=== PATIENT | female | born 1995 | race African-American/Black ===

== ENCOUNTER 2019-02-03 10:10 | Inpatient (IN) | payer OTHER ==
--- NOTE | 2019-02-03 10:24 | ED ---
Psychiatric Complaint - HPI Summary HPI Summary: Pt is a 23 y/o F presenting to the ED for a psychiatric complaint. Pt had a follow-up with an [facility] psychiatrist who recommended she go to the ED. Pt told the psychiatrist she applied for a leave of absence from [facility] and had SI with an attempt to overdose with Sertraline and Mirtazapine one week ago. Pt attempted overdose with leftover Sertraline, which she is no longer prescribed. Pt was not hospitalized after the attempt. Pt states she knew she would just throw up after ingesting the medications. Pt told her best friend about the attempt. Pt has had intermittent SI for about 3-4 years. Pt denies HI , hallucinations, SALINAS, myalgia, nausea, vomiting, or fever. Pt denies an attempt before this episode. Pt has not previously had a stay. Pt has a PMHx of depression and asthma. Pt takes 450 mg Bupropion and 15 mg Mirtazapine. Pt has been changing medications for depression for the last 2 years. Pt denies any PSHx, tobacco use, or drug use. Pt admits occasional alcohol use, but none today. Pt is originally from [facility]. - History Of Current Complaint Chief Complaint: EDMentalHealth Time Seen by Provider: 02/03/19 10:22 Hx Obtained From: Patient Onset/Duration: Gradual Onset, Lasting Weeks - 3-4 years, Still Present Timing: Weeks - 3-4 years Severity Initially: Moderate Severity Currently: Moderate Aggravating Factor(s): Nothing Alleviating Factor(s): Nothing Associated Signs And Symptoms: Positive: Negative Related History: Positive For: Prior Psychiatric Issues Has Suicidal: Reports: Thoughts, Has Prior Attempt(s) - OD one week ago Ingestion History: Type/Name Of Drug - Sertraline and Mirtazapine - Allergies/Home Medications Allergies/Adverse Reactions: Allergies Allergy/AdvReac Type Severity Reaction Status Date / Time shellfish derived Allergy Intermediate Swelling Verified 02/03/19 10:54 Of Face,Lips,& Throat Home Medications: Home Medications Albuterol HFA INHALER* [Ventolin HFA Inhaler*] 2 puff INH Q4H PRN 02/03/19 [ History Confirmed 02/03/19] BuPROPion XL* [Bupropion XL*] 300 mg PO DAILY 02/03/19 [History Confirmed ] Mirtazapine TAB* [Remeron TAB*] 15 mg PO BEDTIME 02/03/19 [History Confirmed ] buPROPion HCl [Bupropion Xl] 150 mg PO DAILY 02/03/19 [History Confirmed ] PMH/Surg Hx/FS Hx/Imm Hx Previously Healthy: Yes Endocrine/Hematology History: Denies: Hx Diabetes Cardiovascular History: Denies: Hx Hypertension Respiratory History: Reports: Hx Asthma Sensory History: Denies: Hx Legally Blind, Hx Deafness Opthamlomology History: Denies: Hx Legally Blind EENT History: Denies: Hx Deafness - Surgical History Surgical History: None Surgery Procedure, Year, and Place: None Infectious Disease History: No Infectious Disease History: Denies: Traveled Outside the [place] in Last 30 Days - Family History Known Family History: Negative: Hypertension, Diabetes - Social History Occupation: Student Alcohol Use: Occasionally Hx Substance Use: Yes Substance Use Type: Reports: Marijuana Hx Tobacco Use: No Smoking Status (MU): Never Smoked Tobacco Review of Systems Negative: Fever Negative: Vomiting, Nausea Negative: Myalgia Negative: Headache Positive: Other - Positive SI and attempt one week ago; negative HI or hallucinations All Other Systems Reviewed And Are Negative: Yes Physical Exam - Summary Physical Exam Summary: Constitutional: Well-developed, Well-nourished, Alert. (-) Distressed Skin: Warm, Dry HENT: Normocephalic; Atraumatic Eyes: Conjunctiva normal Neck: Musculoskeletal ROM normal neck. (-) JVD, (-) Stridor, (-) Tracheal deviation Cardio: Rhythm regular, rate normal, Heart sounds normal; Intact distal pulses; Radial pulses are 2+ and symmetric. (-) Murmur Pulmonary/Chest wall: Effort normal. (-) Respiratory distress, (-) Wheezes, (-) Rales Abd: Soft, (-) tenderness, (-) Distension, (-) Guarding, (-) Rebound Musculoskeletal: (-) Edema Lymph: (-) Cervical adenopathy Neuro: Alert, Oriented x3 Psych: Depressed Affect Triage Information Reviewed: Yes Vital Signs On Initial Exam: Initial Vitals Temp Pulse Resp BP Pulse Ox 98.3 F 90 16 132/78 100 02/03/19 10:11 02/03/19 10:11 02/03/19 10:11 02/03/19 10:11 02/03/19 10:11 Vital Signs Reviewed: Yes Procedures - Sedation Patient Received Moderate/Deep Sedation with Procedure: No Diagnostics - Vital Signs Vital Signs Temp Pulse Resp BP Pulse Ox 02/03/19 10:11 98.3 F 90 16 132/78 100 - Laboratory Result Diagrams: 02/03/19 10:42 02/03/19 10:42 Lab Statement: Any lab studies that have been ordered have been reviewed, and results considered in the medical decision making process. Re-Evaluation - Re-Evaluation 1st re-eval Re-Evaluation Time: 10:53 Change: Unchanged Comment: At 10:53, pt is medically cleared for a evaluation. Course/Dx - Course Course Of Treatment: Patient was sent for psychiatric evaluation as she's had suicidal thoughts with a suicide attempt last week. Patient had no symptoms here and was medically cleared by myself. Patient was evaluated by psychiatry in the recommended inpatient admission which she did voluntarilly - Differential Dx/Clinical Impression Provider Diagnosis: Depressive episode Discharge ED - Sign-Out/Discharge Documenting (check all that apply): Patient Departure - Admit - Discharge Plan Condition: Stable [place] [place]illing Disposition and Condition Condition: STABLE Disposition[place] [facility] [place] Attestation Statements Document Initiated by Scribe: Yes Documenting Scribe: Renae Saldaña Provider For Whom Fredy is Documenting (Include Credential): Roger Kauffman MD Scribe Attestation: Renae Blackwood, scribed for Roger Kauffman MD on 02/03/19 at 2026. Scribe Documentation Reviewed: Yes Provider Attestation: The documentation as recorded by the Renae lynne accurately reflects the service I personally performed and the decisions made by ga, Roger Kauffman MD Status of Scribe Document: Viewed Consult Consult: At 13:32, scrap kettle tender reports that pts case was reviewed by Dr. Haynes who will admit the pt with a diagnosis of depressive episode and NOS.
[2019-02-03 11:00] LABS: Urine Appearance Clear; Urine Bilirubin Negative (Negative); Urine Blood Negative (Negative); Urine Color Yellow; Urine Glucose Negative (Negative); Urine Ketones Negative (Negative); Urine Nitrite Negative (Negative); Urine Protein Negative (Negative); Urine Specific Gravity 1.009 (1.010-1.030); Urine Urobilinogen Negative (Negative)
[2019-02-03 11:01] LABS: ABS Basophils 0.1 10^3/ul (0-0.2); ABS Eosinophils 0.2 10^3/ul (0-0.6); ABS Lymphocytes 1.8 10^3/ul (1.0-4.8); ABS Monocytes 0.4 10^3/ul (0-0.8); Eosinophil % 3.6 %; Hematocrit 33 % (35-47); Hemoglobin 10.3 g/dL (12.0-16.0); Lymphocyte % 41.2 %; Mean Corpuscular HGB Conc 32 g/dL (31-36); Mean Corpuscular Hemoglobin 23 pg (27-31); Mean Corpuscular Volume 73 fL (80-97); Mean Platelet Volume 6.4 fL (7.4-10.4); Nucleated Red Blood Cells % 0.2; Platelet Count 631 10^3/uL (150-450); Red Blood Count 4.53 10^6 /uL (3.70-4.87); Red Cell Distribution Width 18 % (10-15); White Blood Count 4.5 10^3/uL (3.5-10.8)
[2019-02-03 11:08] LABS: Urine Benzodiazepine Screen None Detected (None Detect); Urine Opiates Screen None Detected (None Detect)
[2019-02-03 11:09] LABS: ALT 10 U/L (7-52); AST 20 U/L (13-39); Albumin 4.6 g/dL (3.2-5.2); Albumin/Globulin Ratio 1.1 (1-3); Alkaline Phosphatase 69 U/L (34-104); Anion Gap 6 mmol/L (2-11); BUN/Creatinine Ratio 9.8 (8-20); Blood Urea Nitrogen 8 mg/dL (6-24); CO2 Carbon Dioxide 27 mmol/L (22-32); Calcium 9.7 mg/dL (8.6-10.3); Chloride 101 mmol/L (101-111); EGFR African American 105.5 (>60); EGFR Non-African American 87.2 (>60); Globulin 4.1 g/dL (2-4); Glucose 91 mg/dL (70-100); Sodium 134 mmol/L (135-145); Total Protein 8.7 g/dL (6.4-8.9)
[2019-02-03 11:16] LABS: HCG Pregnancy < 0.60 mIU/mL
[2019-02-03 11:55] LABS: Alcohol < 10 mg/dL (<10)
[2019-02-03] MEDS ORDERED: Al Hydrox/Mg Hydrox/Simet LIQ* 30 ML UDC PO PRN (13:04)
[2019-02-03] MEDS ORDERED: Albuterol HFA INHALER* 8 gm MDI INH PRN ×2 (13:05→16:55)
[2019-02-03] MEDS ORDERED: hydrOXYzine HCL TAB* 50 MG PO PRN (13:06)
[2019-02-03] MEDS: Mirtazapine TAB* 15 MG PO SCH (21:51)
[2019-02-04] MEDS ORDERED: BuPROPion XL* 300 MG TAB.XL PO SCH (09:00)
[2019-02-04] MEDS ORDERED: BuPROPion XL* 150 MG TAB.XL PO SCH (09:00)
[2019-02-04] MEDS ORDERED: Influenza VAC *QUAD* 2019-20* 0.5 ML SYRINGE IM ONE (09:00)
[2019-02-04] MEDS: BuPROPion XL* 150 MG TAB.XL PO SCH (10:05)
[2019-02-04] MEDS: BuPROPion XL* 300 MG TAB.XL PO SCH (10:05)
--- NOTE | 2019-02-04 15:27 | HP ---
HISTORY AND PHYSICAL: DATE OF ADMISSION: 02/03/19 PROVIDER: Beverly Uribe NP, in Psychiatry. SUPERVISING PHYSICIAN: Jarrett Haynes MD.* (DICTATED BY BEVERLY URIBE NP) JUSTIFICATION FOR ADMISSION: The patient is in need of 24-hour supervision and care secondary to suicidal ideation and recent overdose. CHIEF COMPLAINT: "I am mentally and emotionally exhausted. For the last three years, I have been toughing it out and trying to find solutions. I am tired of it." HISTORY OF PRESENT ILLNESS: The patient is a 23-year-old single [facility] female with a history of depressive disorder and anxiety, who arrives brought in by [facility] security on a 9.41 following an overdose last week and continuing suicidal ideation with multiple plans. Suzie reports that since freshman and sophomore year, problems have been going on. She is now a senior. She states her fresh year problem started when she had an armpit rash and she could not wash for a week. She then became worried about body odor. This caused her to have increased anxiety. She stopped going to the dinning chung and she was already not eating well and eventually she could not eat without having a panic attack. Her anxiety is greatest around people. She stated that sometimes when she is on meds that are working for her such as a high dose of sertraline, she does not worry that much, but she could not tolerate the high dose of sertraline and so that was stopped. She states she has gone to the [facility] regarding her odor concern and at one point they said she had possibly body bacteria that was imbalanced, but she stopped treating that and has remained anxious about that issue since that time. She had an overdose last week on her leftover pills and Motrin. She states she had a bad day. She has been feeling tired more often. She stated in a surprised way that sometimes I get down but can still be positive, but at this time I am very exhausted. She states she knew the overdose would not work, but she wanted to be numb and the numbness that she was hoping to achieve was from being exhausted mentally and emotionally. She has stressors that include medications that are not working as well that she would like, many of which she cannot tolerate. She is double majoring. She cannot always stay in class due to anxiety. She has this concern about her smell and cannot seem to get past despite the fact that has been 3 or 4 years. PAST PSYCHIATRIC HISTORY: She has had no prior psychiatric hospitalizations, [facility] is the only psychiatric treatment she has ever gotten. She states she has suicidal thoughts "a lot." She has developed a resentment toward her own body. She used to wish she could exist without having her body present. Now, she would prefer to just sleep forever. She is tired of having responsibilities that are overwhelming. She is hoping to never need to have such personal expectations again. PREVIOUS PSYCHIATRIC MEDICATIONS: Included: 1. Prozac. 2. Klonopin. 3. Sertraline. 4. Wellbutrin. 5. Escitalopram. 6. Quetiapine. 7. Aripiprazole. Currently, she is taking low dose mirtazapine and 450 mg of Wellbutrin which she states is not working. She states she has waited for five weeks for it to work and has not helped. That is not necessarily the information that I am getting from Dr. Ndiaye at [facility], who states her mood has improved now and again over the course of the six weeks of notes that I have received from [facility]. PAST MEDICAL HISTORY: She does have a problem absorbing iron and she is exhausted much of the time. She also has been seen for the odor concern that she has. FAMILY HISTORY: She states she has half siblings. Her older brother passed in 2014. He was type 1 diabetic. He had schizophrenia. Her mother indicates that it is from her dad's side and they do not share the same father. Mom is currently exhausted and stressed out from handling that brother. Mom wonders why God gave her two kids with mental illness. Mom also is depended upon heavily by Ashae. SUBSTANCE ABUSE HISTORY: She does not smoke. She is an occasional alcohol drinker. SOCIAL HISTORY: She is from [place]. She lives with her mother there. Here at [place], she goes to school at [employer]. Lives off campus with two roommates that she likes. 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 She has not been in the . She has no legal problems. She is concerned about finances. REVIEW OF SYSTEMS: The patient reports being fatigued. She denies shortness of breath, heat or cold intolerance, chest pain or abdominal pain. She denies neurological symptoms. She denies fevers or changes in weight. PHYSICAL EXAMINATION CONSTITUTIONAL: Well developed, well nourished, alert. VITAL SIGNS: On 02/04/19 at 0800, temperature is 98.9, pulse 103, respirations 16, O2 sat on room air 100, blood pressure 124/67. HEENT: Normocephalic, atraumatic. Eyes, conjunctivae normal. NECK: Musculoskeletal ROM normal neck. No JVD, no stridor, no tracheal deviation. PULMONARY: Chest wall effort normal. No respiratory distress. No wheezes. No rales. CARDIOVASCULAR: Regular rhythm. Rate normal. Heart sounds normal. Intact distal pulses. Radial pulses are 2+ and symmetric. No murmur. ABDOMEN: Soft. No tenderness. No distention. No guarding, no rebound. MUSCULOSKELETAL: No edema. LYMPH: Negative cervical adenopathy. NEURO: Alert and oriented x4. SKIN: Warm and dry. DIAGNOSTIC STUDIES/LAB DATA: Hematology results are significant for low hemoglobin, low hematocrit, low MCV, low MCH, low MPV, high RDW, and high platelet count. Chemistry is largely normal with the exception of sodium being low at 134, globulin high at 4.1. Urine screen shows urine specific gravity low at 1.009. Toxicology screen is free from drugs of abuse. MENTAL STATUS EXAMINATION: Suzie is a 5 feet 3 inches, 96-pound, black woman with her hair pulled back in a bun and wearing a blue fleece jacket. She sits quietly but appears anxious. She is cooperative. Her speech is soft, normal rate and tone. She is dysthymic. She has a full range of affect. Her thought processes are normal. Thought content is free from delusions, although there is a case to be made that the concern she has about body odor is obsessive and may be marginally delusional. She is not homicidal. She is suicidal, but not actively on this this unit. She denies hallucinations. Her insight is fair. Her judgment is good. She is alert and oriented x4. DIAGNOSIS: Major depressive disorder, anxiety disorder. IMPRESSION: Suzie is a 23-year-old single [facility] black female who comes to the hospital following an overdose few days ago and at the urging of Dr. Ndiaye at [facility] who perceives her mental health to be unstable and worrisome. PLAN: The patient is admitted to the adult behavioral health unit and placed on q.15 minute checks for her own safety. She is encouraged to participate in supportive milieu, individual and group therapies. Estimated length of stay is 5 to 7 days. We will obtain an MMPI for diagnostic clarification. We will titrate medications including adding Abilify 5 mg and watching for efficacy. We will monitor for mood and thought content. Discharge planning will include family involvement and outpatient providers. BEVERLY URIBE, DEANGELO [id number]/CPS #: [id number] JOAO
[2019-02-04] MEDS: Mirtazapine TAB* 15 MG PO SCH (21:07)
[2019-02-04] MEDS: ARIPiprazole TAB* 5 MG PO SCH (21:07)
[2019-02-05] MEDS: Ferrous Gluconate TAB* 324 MG TAB PO SCH (09:55)
[2019-02-05] MEDS: BuPROPion XL* 300 MG TAB.XL PO SCH (09:55)
[2019-02-05] MEDS: BuPROPion XL* 150 MG TAB.XL PO SCH (09:55)
[2019-02-05] MEDS: ARIPiprazole TAB* 5 MG PO SCH (22:36)
[2019-02-05] MEDS: Mirtazapine TAB* 15 MG PO SCH (22:37)
[2019-02-06] MEDS: BuPROPion XL* 150 MG TAB.XL PO SCH (10:01)
[2019-02-06] MEDS: BuPROPion XL* 300 MG TAB.XL PO SCH (10:02)
[2019-02-06] MEDS: Ferrous Gluconate TAB* 324 MG TAB PO SCH (10:02)
--- NOTE | 2019-02-06 13:22 | PN ---
Subjective - Subjective Date of Service: 02/06/19 Service Type: 02315 Hosp care 25 min moderate complexity Subjective: Greg continues to believe that she has the bad body odor but less intense than before admission. Mood appears improved, she is more talketive and future oriented about creative writing and so on. Denies SI or hallucinations. Stays mostly to self. Objective - General Observations Appearance: Unkempt Stature: Thin Posture: WNL Eye Contact: Avoidant Behavior/Activity: Slowed - Interaction Observations Attitude Towards Examiner: Cooperative Stated Mood: Dysphoric Affect: Restricted Speech Pattern/Tone: Clear, Quiet Volume Thought Process: Coherent, Goal Directed Thought Content: Depressive Hallucination Type: Denies Delusion Type: Somatic - Cognitive Function Orientation: A&O x 4 Level of Consciousness: Awake, Alert, Appropriate Estimated Intelligence: Normal Judgment Within Normal Limits: No Ability to Make Reasonable Decisions: Moderately Impaired - Medication Compliance Cooperative with Inpatient Medication Regimen: Yes - Group Participation Participates in Group Activities: No Assessment - Assessment Merits Inpatient Hospitalization: For Immediate Safety, For Stabilization, For Discharge Planning Plan - Plan Treatment Plan: Name: GREG DIOP Birthdate: 1995 [id number] Continued Medication Management: Continue Outpt Medication Medications: Current Medications Acetaminophen (Tylenol Tab*) 650 mg PO Q4H PRN PRN Reason: for pain; or Temp >101 F Al Hydrox/Mg Hydrox/Simethicone (Maalox Plus*) 30 ml PO Q4H PRN PRN Reason: INDIGESTION Albuterol (Ventolin Hfa Inhaler*) 2 puff INH Q4H PRN PRN Reason: SOB/WHEEZING Aripiprazole (Abilify Tab*) 5 mg PO BEDTIME [facility] Last Admin: 02/05/19 22:36 Dose: 5 mg Bupropion HCl (Bupropion Xl*) 300 mg PO DAILY [facility] Last Admin: 02/06/19 10:02 Dose: 300 mg Bupropion HCl (Wellbutrin Xl *) 150 mg PO DAILY [facility] Last Admin: 02/06/19 10:01 Dose: 150 mg Ferrous Gluconate (Fergon Tab*) 324 mg PO DAILY [facility] Last Admin: 02/06/19 10:02 Dose: 324 mg Hydroxyzine HCl (Atarax Tab*) 50 mg PO Q6H PRN PRN Reason: anxiety Mirtazapine (Remeron Tab*) 15 mg PO BEDTIME [facility] Last Admin: 02/05/19 22:37 Dose: 15 mg - Discharge Plan Discharge Plan: Outpatient Follow Up Outpatient Program: Counseling/Psych Services at [place]
[2019-02-06] MEDS: Mirtazapine TAB* 15 MG PO SCH (22:01)
[2019-02-06] MEDS: ARIPiprazole TAB* 5 MG PO SCH (22:02)
[2019-02-07] MEDS: Acetaminophen TAB* 325 MG PO PRN ×2 (10:35→19:11)
[2019-02-07] MEDS: BuPROPion XL* 150 MG TAB.XL PO SCH (10:36)
[2019-02-07] MEDS: Ferrous Gluconate TAB* 324 MG TAB PO SCH (10:36)
[2019-02-07] MEDS: BuPROPion XL* 300 MG TAB.XL PO SCH (10:36)
[2019-02-07] MEDS ORDERED: Escitalopram * 10 MG TAB PO SCH (14:00)
[2019-02-07] MEDS: ARIPiprazole TAB* 5 MG PO SCH (15:28)
[2019-02-07] MEDS: GuaiFENesin DM 100 mg/10 mg in 5 ML UDC PO SCH ×2 (15:29→20:32)
--- NOTE | 2019-02-07 16:51 | PN ---
Subjective - Subjective Date of Service: 02/07/19 Service Type: 28617 Hosp care 25 min moderate complexity Subjective: Greg has multiple concerns including not sleeping well, having bad/vivid dreams , not thinking Wellbutrin is helpful, feeling like sertralline was most helpful , but that it upset her stomach, she also has a cough. She also states, "I feel like my depression/anxiety is situational." We discuss this and challenge it, as the situation has been going on for about three years. We talk about how she's always tired and is tired of verything even when there is always stuff to do. She feels exhausted. She also states she works two jobs to pay rent. We discuss the cycle she has of anxiety leading to self-conscious thoughts and then back to anxiety and how she would benefit from both medication and therapy and possibly group therapy. She doesn't want to go to group therapy, however, as it seems to al panic attacks for her. Objective - General Observations Appearance: Neat, Well Groomed Appears Stated Age: Yes Stature: Thin Posture: WNL Eye Contact: Intermittent Behavior/Activity: WNL - Interaction Observations Attitude Towards Examiner: Cooperative, Anxious Stated Mood: Dysphoric, Anxious Affect: Restricted Speech Pattern/Tone: Clear Thought Process: Coherent Perception: Derealization Thought Content: Preoccupation/Ruminations, Obsessional, Depressive, Self- Deprecatory Thought Process: Lethality: Passive Wish, Paranoid Ideation Hallucination Type: None Delusion Type: Somatic - Cognitive Function Orientation: A&O x 4 Level of Consciousness: Awake, Alert, Appropriate Cognition: WNL Estimated Intelligence: Normal Insight: Difficulty Acknowledging Presence of Psyciatric Problems Judgment Within Normal Limits: No Ability to Make Reasonable Decisions: Moderately Impaired - Medication Compliance Cooperative with Inpatient Medication Regimen: Yes - Group Participation Participates in Group Activities: Partial Assessment - Assessment Merits Inpatient Hospitalization: For Immediate Safety Plan - Plan Treatment Plan: Name: GREG DIOP Birthdate: 1995 [id number] 02/07/19 To address concerns, we will change Abilify to the morning. We will stop Wellbutrin, but begin by decreasing it to 300 mg for now. In light of her perceived improvement with sertraline but the side effect of nausea, we will start Lexapro, which is generally more well tolerated. We'll also start a cough medicine for her. Continued Medication Management: Different Medication Medications: Current Medications Acetaminophen (Tylenol Tab*) 650 mg PO Q4H PRN PRN Reason: for pain; or Temp >101 F Last Admin: 02/07/19 10:35 Dose: 650 mg Al Hydrox/Mg Hydrox/Simethicone (Maalox Plus*) 30 ml PO Q4H PRN PRN Reason: INDIGESTION Albuterol (Ventolin Hfa Inhaler*) 2 puff INH Q4H PRN PRN Reason: SOB/WHEEZING Aripiprazole (Abilify Tab*) 5 mg PO QAM [facility] Last Admin: 02/07/19 15:28 Dose: 5 mg Bupropion HCl (Bupropion Xl*) 300 mg PO DAILY [facility] Last Admin: 02/07/19 10:36 Dose: 300 mg Escitalopram Oxalate (Lexapro *) 5 mg PO DAILY [facility] Ferrous Gluconate (Fergon Tab*) 324 mg PO DAILY [facility] Last Admin: 02/07/19 10:36 Dose: 324 mg Guaifenesin/Dextromethorphan (Robitussin Dm*) 10 ml PO TID [facility] Last Admin: 02/07/19 15:29 Dose: 10 ml Hydroxyzine HCl (Atarax Tab*) 50 mg PO Q6H PRN PRN Reason: anxiety Mirtazapine (Remeron Tab*) 15 mg PO BEDTIME [facility] Last Admin: 02/06/19 22:01 Dose: 15 mg - Discharge Plan Discharge Plan: Outpatient Follow Up
[2019-02-07] MEDS: Mirtazapine TAB* 15 MG PO SCH (20:32)
[2019-02-08] MEDS: ARIPiprazole TAB* 5 MG PO SCH (10:06)
[2019-02-08] MEDS: Escitalopram * 5 MG TAB PO SCH (10:07)
[2019-02-08] MEDS: Ferrous Gluconate TAB* 324 MG TAB PO SCH (10:07)
[2019-02-08] MEDS: BuPROPion XL* 300 MG TAB.XL PO SCH (10:07)
[2019-02-08] MEDS: GuaiFENesin DM 100 mg/10 mg in 5 ML UDC PO SCH ×3 (10:08→21:23)
--- NOTE | 2019-02-08 13:10 | PN ---
Subjective - Subjective Date of Service: 02/08/19 Service Type: 40722 Hosp care 15 min low complexity Subjective: Greg talks about her concern about body odor and we discuss that the most likely concern is that her thought processes have contributed the most. She is receptive to the long discussion we have to determine how she can escape the continuous thoughts that she smells bad. She also discussed some specific concerns she had about body odor that were basic to how human bodies smell, such as armpit and vaginal odors. She has been seen outpatient related to these concerns and she is encouraged to follow up with appropriate medical secretary (such as her PCP and a woman's health professional) and she is discouraged from following up on things that have a lower likelihood of causing problems, such as a chronic sinus problem or washing clothes 2-4 times per day. She says that she appreciates the conversation and that it means a lot to her. She then goes to wash her clothes for the second time today. Objective - General Observations Appearance: Neat, Well Groomed Appears Stated Age: Yes Stature: Thin Posture: WNL Eye Contact: Average Behavior/Activity: WNL - Interaction Observations Attitude Towards Examiner: Cooperative, Anxious Stated Mood: Dysphoric Affect: Restricted Speech Pattern/Tone: Clear, Quiet Volume Thought Process: Coherent, Goal Directed Perception: Illusions Thought Content: Preoccupation/Ruminations, Paranoid, Self-Deprecatory, Phobic Hallucination Type: Olfactory Delusion Type: Somatic - Cognitive Function Orientation: A&O x 4 Level of Consciousness: Awake, Alert, Appropriate Cognition: WNL Estimated Intelligence: Normal Insight: Difficulty Acknowledging Presence of Psyciatric Problems Judgment Within Normal Limits: No Ability to Make Reasonable Decisions: Mildly Impaired - Medication Compliance Cooperative with Inpatient Medication Regimen: Yes - Group Participation Participates in Group Activities: Partial Assessment - Assessment Merits Inpatient Hospitalization: For Immediate Safety, For Discharge Planning Inpatient DSM-V Dx: F42.9 Clinical Impression: Chato is a 23 year old [place] woman who comes to the hospital with suicidal ideation related to her believe that she is malodorous and not succeeding. Plan - Plan Treatment Plan: Name: GREG DIOP Birthdate: 1995 [id number] 02/07/19 To address concerns, we will change Abilify to the morning. We will stop Wellbutrin, but begin by decreasing it to 300 mg for now. In light of her perceived improvement with sertraline but the side effect of nausea, we will start Lexapro, which is generally more well tolerated. We'll also start a cough medicine for her. 02/08/19 Continue Abilify. Increase Lexapro to 10 mg. Decrease Wellbutrin to 150 mg. Continued Medication Management: Different Medication Medications: Current Medications Acetaminophen (Tylenol Tab*) 650 mg PO Q4H PRN PRN Reason: for pain; or Temp >101 F Last Admin: 02/07/19 19:11 Dose: 650 mg Al Hydrox/Mg Hydrox/Simethicone (Maalox Plus*) 30 ml PO Q4H PRN PRN Reason: INDIGESTION Albuterol (Ventolin Hfa Inhaler*) 2 puff INH Q4H PRN PRN Reason: SOB/WHEEZING Aripiprazole (Abilify Tab*) 5 mg PO QAM [facility] Last Admin: 02/08/19 10:06 Dose: 5 mg Bupropion HCl (Bupropion Xl*) 300 mg PO DAILY [facility] Last Admin: 02/08/19 10:07 Dose: 300 mg Escitalopram Oxalate (Lexapro *) 5 mg PO DAILY [facility] Last Admin: 02/08/19 10:07 Dose: 5 mg Ferrous Gluconate (Fergon Tab*) 324 mg PO DAILY [facility] Last Admin: 02/08/19 10:07 Dose: 324 mg Guaifenesin/Dextromethorphan (Robitussin Dm*) 10 ml PO TID [facility] Last Admin: 02/08/19 10:08 Dose: 10 ml Hydroxyzine HCl (Atarax Tab*) 50 mg PO Q6H PRN PRN Reason: anxiety Mirtazapine (Remeron Tab*) 15 mg PO BEDTIME [facility] Last Admin: 02/07/19 20:32 Dose: 15 mg
[2019-02-08] MEDS: Mirtazapine TAB* 15 MG PO SCH (21:22)
[2019-02-09 09:00] VITALS: BP 129/73
[2019-02-09] MEDS: ARIPiprazole TAB* 5 MG PO SCH (09:13)
[2019-02-09] MEDS: Escitalopram * 5 MG TAB PO SCH (09:13)
[2019-02-09] MEDS: BuPROPion XL* 300 MG TAB.XL PO SCH (09:14)
[2019-02-09] MEDS: Ferrous Gluconate TAB* 324 MG TAB PO SCH (09:14)
[2019-02-09] MEDS: GuaiFENesin DM 100 mg/10 mg in 5 ML UDC PO SCH (09:15)
[2019-02-10] MEDS ORDERED: Escitalopram * 5 MG TAB PO SCH (09:00)
[2019-02-10] MEDS ORDERED: BuPROPion XL* 300 MG TAB.XL PO SCH (09:00)
--- NOTE | 2019-02-15 14:16 | DS ---
DISCHARGE SUMMARY: DATE OF ADMISSION: 02/03/19 DATE OF DISCHARGE: 02/09/19 PROVIDER: Beverly Uribe NP in Psychiatry. SUPERVISING PHYSICIAN: Jarrett Haynes MD.* (DICTATED BY BEVERLY URIBE NP ) DIAGNOSES: 1. Major depressive disorder. 2. Generalized anxiety disorder. CONDITION AT THE TIME OF DISCHARGE: Improved, psychiatrically cleared, stable. Suzie participated in groups and was social with peers. She is agreeable to discharge. She did well here psychiatrically. She tolerated the addition of medications, and she will be attending [employer]. MENTAL STATUS EXAM AT THE TIME OF DISCHARGE: Suzie is calm, cooperative, and makes good eye contact. She is alert and oriented x4. Her grooming is good. Her speech pace is normal. Her voice is soft. Her thought processes are logical. She is not psychotic or delusional. She denies AH, VH, SI, and HI. Insight and judgment are good. She is willing to follow up and urged to see a therapist. DISCHARGE INSTRUCTIONS TO THE PATIENT: A. Medications: 1. Albuterol inhaler 2 puffs q.4 hours p.r.n. shortness of breath and wheezing. 2. Aripiprazole 5 mg in the morning. 3. Bupropion 150 daily, to be titrated down to 0 mg. 4. Escitalopram 10 mg daily. 5. Ferrous gluconate 325 mg daily. 6. Mirtazapine 15 mg at bedtime. B. Diet is regular. C. Activities as tolerated. Suzie is a nonsmoker. There are no studies pending at the time of discharge. D. Followup care: She has appointments at [facility] on 02/09/19 at 3 with Gifty Chávez; on 02/17/19 at 10:[address] Ndiaye; and on at 10 a.m. with Jennifer Freeman. E. Disposition: She is being discharged to her apartment off campus. F. Substance abuse followup is not indicated. HOSPITAL COURSE: Part A: Chief Complaint: "I am mentally and emotionally exhausted for the last 3 years. I have been toughing it out and trying to find solutions, I am tired of it." The patient is a 23-year-old single [facility] female with a history of depressive disorder and anxiety, who arrives brought in by [facility] on a 941 following an overdose last week and continuing suicidal ideation with multiple plans. Suzie reports that since freshman and sophomore year, problems have been going on. She is now a jones or senior. She states her fresh year problems started when she had an armpit rash and she could not wash for a week. She then became worried about body odor. This caused her to have increased anxiety and she stopped going to the dining chung and she was already not eating well and eventually she could not eat without having a panic attack. Her anxiety is greatest around people. She stated that sometimes when she is on meds that are working for her such as the high dose of sertraline, she does not worry that much, but she could not tolerate the high dose of sertraline and she was not fully compliant with medication, so that was stopped. She states she has gone to [facility] regarding her odor concern and at one point they said she had possibly body bacteria that was imbalanced, but she stopped treating that and has remained anxious about that issue since that time. She had an overdose last week on her leftover pills and Motrin. She states she had a bad day. She has been feeling tired more often. She stated in a surprised way that sometimes "I get down but can still be positive but at this time I am very exhausted." She states she knew the overdose would not work to kill her, but she wanted to be numb and the numbness that she was hoping to achieve was from being exhausted mentally and emotionally. She has stressors that include medications that are not working as well as she would like, many of which she cannot tolerate. She is double majoring. She cannot always stay in class due to anxiety. She has this concern about her smell and cannot seem to get past it despite the fact that it had been 3 or 4 years. Part B: Psychiatric treatment was rendered. Suzie was admitted to the adult behavioral unit and placed on 15-minute checks for safety. She did advance to 30- minute checks and staff pass privileges. She did well on the unit and went to groups. She interacted with peers well. She tolerated the start of Lexapro well despite her concern that she would not do well with it due to stomach upset. We started Abilify at bedtime but moved it to the morning. We planned on stopping Wellbutrin but began by decreasing it from 450 to 300 mg and at discharge decreasing it again to 150 mg. She did perceive significant improvement with sertraline in the past but with the side effect of nausea and a problem of inconsistent compliance, we will start Lexapro which is generally more well tolerated. Nevertheless, she will have to be careful to maintain good care in taking her medication consistently. We also started a cough medicine for her, which was Robitussin-DM as she had had a cough that was bothersome. We started Lexapro at 5 mg and increased it to 10 mg at the same time of decreasing Wellbutrin to 150 mg. Suzie is concerned about her body odor; the worry was pervasive and concerning. There was a case reported in treatment team of a similar presentation that was improved with addition of Prozac. I shared this information with Suzie and she found it reassuring and we discussed the idea that she needed to focus on being mindful of her anxiety rather than mindful of her potential odor. She stated "this is really helpful, this really helps" and walked away happily. I did see her approximately 10 minutes later washing her clothes for the second time that day. We did start an antipsychotic, and her hemoglobin A1c and lipid panel should be followed outpatient as they were not here in the hospital. Suzie's mother is quite intense according to Suzie. She has commented that Suzie smells bad and needs to bathe or wash her clothes and these thoughts have stayed with Suzie very firmly. Nevertheless, she is improved, she is physically less anxious appearing, and she states she is ready and willing to work on her anxiety so that she is not concerned. We did start Abilify as her depression was not fully treated. Also there is a component of lack of being grounded in reality and it was considered that if Abilify has a positive effect on her depression, it may also have a positive effect on the obsessive thoughts that border on psychosis. Suzie is future oriented. She is eager to get back to school and continue double majoring in the study she has chosen. She is wished all the best. BEVERLY URIBE, DEANGELO [id number]/CPS #: [id number]
== END 2019-02-09 12:39 | disposition home or self-care (01) | DRG 755 ==
LOC: ED 10:10 → BSU 13:04 → ED 15:06
PROVIDERS: ADMIT Psychiatry & Neurology Psychiatry; ATTEND Psychiatry & Neurology Psychiatry
DX: F42.9 Obsessive-compulsive disorder, unspecified (principal); R45.851 Suicidal ideations; Z81.8 Family history of other mental and behavioral disorders; Z79.899 Other long term (current) drug therapy
CPT/HCPCS: 36415; 80053; 80307; 80320; 81003; 84702; 85025; 99222; 99231; 99232; 99238; 99284; A9270-GY; G0480